=== PATIENT | male | born 1985 | race African-American/Black ===

== ENCOUNTER 2024-07-03 21:56 | Emergency (ER) | payer MEDICAID ==
[~2024-07-03] VITALS: Ht 185.4 cm; Wt 80.0 kg
[2024-07-03 22:56] VITALS: PULSE 91; RESP 20; O2SAT 95
[2024-07-03] MEDS: ALBUTEROL (0.5%) 2.5MG/0.5ML NEB HHN ONE (22:56)
[2024-07-03 23:09] LABS: BASOPHILS % 0.4 % (0.0-2.0); EOSINOPHILS % 9.6 % (0.0-5.0); HEMATOCRIT. 37.7 % (42.0-52.0); HEMOGLOBIN. 12.1 g/dL (14.0-18.0); LYMPHOCYTES % 21.8 % (20.0-50.0); MEAN CORPUSCULAR HEMOGLOBIN 29.7 pg (28.0-32.0); MEAN CORPUSCULAR HGB CONC 32.2 g/dL (31.0-37.0); MEAN CORPUSCULAR VOLUME 92.4 fL (80.0-94.0); MEAN PLATELET VOLUME 6.5 fl (7.4-10.4); MONOCYTES % 7.1 % (2.0-8.0); NEUTROPHILS % 61.1 % (40.0-76.0); PLATELET 392 x1000/uL (130-400); RED BLOOD CELL COUNT 4.08 mill/uL (4.7-6.1); WHITE BLOOD COUNT 8.8 x1000/uL (4.5-11.0)
[2024-07-03 23:16] LABS: CHLORIDE 108 mEq/L (98-107); POTASSIUM 4.2 mEq/L (3.5-5.1); SODIUM 144 mEq/L (136-145)
[2024-07-03 23:17] LABS: CALCIUM 9.5 mg/dL (8.7-10.4); CARBON DIOXIDE 28 mEq/L (21-32)
[2024-07-03 23:22] LABS: CREATININE 0.8 mg/dL (0.6-1.3); GLUCOSE 106 mg/dL (70-105); UREA NITROGEN BLOOD 14 mg/dL (9-23)
[2024-07-03 23:23] LABS: ETHANOL BLOOD < 10 mg/dL (<10)
[2024-07-03 23:24] LABS: ACETAMINOPHEN < 2 ug/mL (10-30); ALANINE AMINOTRANSFERASE 29 IU/L (10-49); ALBUMIN 3.6 g/dL (3.2-4.8); ASPARTATE AMINOTRANSFERASE 29 IU/L (<34); BILIRUBIN DIRECT < 0.1 mg/dL (<=3.0); BILIRUBIN TOTAL 0.2 mg/dL (0.1-1.0); PROTEIN TOTAL 6.4 g/dL (6.0-8.3)
[2024-07-04 12:16] LABS: CLARITY URINE TURBID (CLEAR); COLOR URINE YELLOW (YELLOW); GLUCOSE URINE NEGATIVE (NEGATIVE); KETONES URINE NEGATIVE (NEGATIVE); LEUKOCYTE ESTERASE URINE NEGATIVE (NEGATIVE); NITRITE URINE NEGATIVE (NEGATIVE); OCCULT BLOOD URINE NEGATIVE (NEGATIVE); PH URINE 8.5 (4.5-8.0); PROTEIN URINE NEGATIVE (NEGATIVE); SPECIFIC GRAVITY URINE 1.016 (1.005-1.030); UROBILINOGEN URINE 0.2 E.U./dL (0.2-1.0)
[2024-07-04 12:32] LABS: *AMPHETAMINES SCREEN URINE NEGATIVE (NEGATIVE); *BARBITURATES SCREEN URINE NEGATIVE (NEGATIVE); *BENZODIAZEPINES SCREEN URINE NEGATIVE (NEGATIVE); *COCAINE SCREEN URINE NEGATIVE (NEGATIVE); METHADONE URINE SCREEN NEGATIVE (NEGATIVE); OPIATES URINE SCREEN NEGATIVE (NEGATIVE); PHENCYCLIDINE URINE SCREEN NEGATIVE (NEGATIVE)
[2024-07-04 12:33] LABS: CANNABINOID URINE SCREEN PRESUMPTIVE POSITIVE (NEGATIVE); ECSTASY MDMA SCREEN URINE NEGATIVE (NEGATIVE)
[2024-07-04 12:45] LABS: AMORPHOUS SEDIMENT URINE 3+ /lpf; BACTERIA URINE 1+; RBC URINE NONE SEEN /hpf (0-2); SQUAMOUS EPITHELIAL CELL URINE NONE SEEN /lpf (RARE/1+)
[2024-07-04 15:24] VITALS: PULSE 79; RESP 22
[2024-07-04] MEDS: ALBUTEROL (0.083%) 2.5MG/3ML NEB HHN ONE (15:24)
[2024-07-04] MEDS: PREDNISONE 20MG TABLET PO ONE (19:01)
[2024-07-04 21:20] VITALS: PULSE 82; RESP 20
[2024-07-04] MEDS: IPRATROPIUM BROMIDE (0.02%) 0.5MG/2.5ML NEB HHN STA (21:20)
[2024-07-04] MEDS: ALBUTEROL (0.083%) 2.5MG/3ML NEB HHN STA (21:20)
[2024-07-05] MEDS: DIPHENHYDRAMINE 50MG/ML VIAL IM ONE (00:46)
[2024-07-05] MEDS: LORAZEPAM 2MG/ML INJ IM ONE (00:46)
[2024-07-05] MEDS: HALOPERIDOL LACTATE 5MG/ML VIAL IM ONE (00:47)
[2024-07-05 01:42] VITALS: O2SAT 98
[2024-07-05] MEDS: ALBUTEROL (0.083%) 2.5MG/3ML NEB HHN STA (08:30)
[2024-07-05] MEDS: IPRATROPIUM BROMIDE (0.02%) 0.5MG/2.5ML NEB HHN STA (08:30)
[2024-07-05] MEDS ORDERED: ALBU90AE INH (17:48)
[2024-07-05] MEDS ORDERED: P20 MT (17:48)
[2024-07-05 22:00] VITALS: BP 124/75; PULSE 92; RESP 16; TEMP 36.2; O2SAT 97
== END 2024-07-05 22:13 ==
LOC: EDBD 21:56 → ER 21:56
DX: G40.909 Epilepsy, unspecified, not intractable, without status epilepticus (principal); J98.01 Acute bronchospasm; F20.9 Schizophrenia, unspecified; Z59.00 Homelessness unspecified; Z20.822 Contact with and (suspected) exposure to COVID-19
CPT/HCPCS: 80076; 80305; 80048; 81003; 80307; 80329; 80320; 85025; 36415; 71045; 94640; 99285; 87426; 96372; Z7610 ×4; J7512; J1200; J1630; J2060; G0480